=== PATIENT | female | born 1990 | race Caucasian/White ===

== ENCOUNTER 2017-05-28 18:07 | Emergency (ER) | payer OTHER ==
--- NOTE | 2017-05-29 01:20 | OBHP ---
Datetime: 05/28/2017 19:15 IP Adm Impression: Term, intrauterine IP Admit Plan: Admit to unit Admit Comment, IP Provider: 26 yo g1 edc 06/06 by 2nd trim us presents w/ c/o irregctxs and pelvic pr essure. She denies vag bleeding, srom or decreased fm. pmhx_ pshx: denies nkda medic: pnv; feso4 shx: denies etoh, illicit drug/tobacco use i: 38.5wks Con Robertson p: pt d/w dr cedeño d/c home Pelvic Type - PN: Adequate Extremities - PN: Normal Abdomen - PN: Normal Lungs - PN: Normal Heart - PN: Normal Neurologic - PN: Normal HEENT - PN: Normal General - PN: Normal Presentation-Admit: Vertex FHR - Baseline A Provider: 130 Membranes, Provider: Intact Contraction Comments Provider: irreg EGA AdmitDate IP: 38.5 Vital Signs Provider: Within Normal Limits IP Chief Complaint: Uterine contractions NICHD Variability Prov Fetus A: Moderate 6-25bpm NICHD Accel Fetus A IP Provider: 15X15 FHR Category Provider Fetus A: Category I NICHD Decel Fetus A IP Provider: None Dilatation, Provider: 0 Effacement, Provider: 20 Station, Provider: -3 Genitourinary Exam: Normal
== END 2017-05-28 19:31 | disposition home or self-care (01) ==
LOC: C.EROB 18:07 → C.4D 19:15 → UNDOADMIN 19:15 → C.EROB 19:31
DX: O47.1 False labor at or after 37 completed weeks of gestation (principal); Z3A.38 38 weeks gestation of pregnancy

== ENCOUNTER 2017-05-31 19:25 | Inpatient (IN) | payer OTHER ==
[2017-05-31 20:17] VITALS: BMI 37.8
[2017-05-31] MEDS ORDERED: Penicillin G 5 Million Unit Vial IVPB ONE (20:17)
[2017-05-31] MEDS: Lactated Ringer's 1,000 ML IV SCH (20:30)
[2017-05-31 20:53] LABS: BASO % 0.3 % (0.0-2.0); EOS # 0.1 K/uL (0.0-0.7); EOS % 0.8 % (0.0-4.0); LYMPH # 2.3 K/uL (1.0-4.3); MEAN CELL VOLUME 84.7 fL (81.0-99.0); MEAN CORPUSCULAR HEMOGLOBIN 28.9 pg (27.0-31.0); MEAN CORPUSCULAR HGB CONC 34.1 g/dL (33.0-37.0); MEAN PLATELET VOLUME 8.7 fL (7.2-11.7); MONO # 0.9 K/uL (0.0-0.8); MONO % 7.8 % (0.0-10.0); NEUT # 8.7 K/uL (1.8-7.0); NEUT % 72.1 % (50.0-75.0); RBC 4.15 Mil/uL (3.80-5.20); RED CELL DISTRIBUTION WIDTH 15.5 % (11.5-14.5); WHITE BLOOD COUNT 12.1 K/uL (4.8-10.8)
[2017-05-31 21:06] LABS: ALBUMIN 3.8 g/dL (3.5-5.0); ALT/SGPT 26 U/L (9-52); AST/SGOT 25 U/L (14-36); BLOOD UREA NITROGEN 8 mg/dL (7-17); CALCIUM 8.8 mg/dl (8.6-10.4); GFR AFRICAN-AMERICAN > 60; GFR NON-AFRICAN AMERICAN > 60
[2017-05-31 21:37] LABS: SQUAMOUS EPITHIAL < 1 /hpf (0-5); URINE BILIRUBIN NEGATIVE (NEGATIVE); URINE BLOOD NEGATIVE (NEGATIVE); URINE CLARITY Clear (Clear); URINE COLOR Colorless (YELLOW); URINE GLUCOSE (UA) NORMAL (Normal); URINE LEUKOCYTE ESTERASE NEG Leu/uL (Negative); URINE NITRATE NEGATIVE (NEGATIVE); URINE PROTEIN NEGATIVE (NEGATIVE); URINE UROBILINOGEN NORMAL mg/dL (0.2-1.0)
--- NOTE | 2017-05-31 21:49 | OBADHP ---
Datetime: 05/31/2017 21:31 IP Adm Impression Other: Prolonged latent phase of labor; GBS positive IP Admit Plan Other: Cervical ripening Admit Comment, IP Provider: This is a private patient of Dr. Ludivina Rogers Patient initially interviewed at approximately 2035 hours 26 y.o. , LMP 08/23/16, AIRAM 06/06/17, EGA 39w 1d by sono 12/12/16 at 14w 5d, c/o occasional contr actions, onset 05/29/17, stronger last night, pain scale 3/10. (+) AFM; denies LOF, VB. Passed mucous plug 0900 05/30/17. Last had sexual intercourse 05/28/17. care: Dr. Duran; noted for mild an emia. 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 Denies h/o STI or abnormal Pap PMH: h/o asthma, approx age 10- was hospitalized. No attacks since. PSH: denies NKDA Meds: PNV, Fe - each QD Soc Hx: denies tobacco, illicit drug or EtOH use. x 1 1/2 years; together x 4 years. Fam Hx: Mother alive 53 y.o. no med issues. Father alive 54 - HTN. 1 Maternal uncle - liver CA P.E.: as above. Mildy lobes, in NAD. Awake, alert, oriented to time, person and place. Pleasant a nd cooperative. present and supportive Assessment: 26 y.o. P0, 39w 1d, prolonged latent phase of labor. Category 1 tracing. GBS (+). Case D/W Dr. Duran: patient for admission - cervical ripening. This was explained to patient, along with the possiblility of pitocin. Pain relief measures were also discussed. Patient and expresse d an understanding and agree; no questoins offered. Patient is clinically stable. Plan: 1) Admit 2) NPO 3) IVFs 4) Admission labs 5) Continuous EFM 6) Cervidil 7) Penicillin (when in active labor) 8) Pain relief, upon request 9) Anticipate vaginal delivery -as per, and discussed with, Dr. Duran Cervidil inserted in posterior vaginal vault at 2103 hours Pelvic Type - PN: Adequate Extremities - PN: Normal Abdomen - PN: Normal Back - PN: Normal Breast - PN: Not Done Lungs - PN: Normal Heart - PN: Normal Thyroid - PN: Not Done Neurologic - PN: Normal HEENT - PN: Normal General - PN: Normal Weight - Estimated: 3632 Presentation-Admit: Vertex FHR - Baseline A Provider: 135 Contraction Comments Provider: irregular Comments, ACOG Physical Exam: Abdomen: Gravid. Soft; non tender. Fundal height 40 cm All other systems reviewed and are negative Gestation - Est Wks by US: 39w 1d Vital Signs Provider: Reviewed; Within Normal Limits IP Chief Complaint: Uterine contractions NICHD Variability Prov Fetus A: Moderate 6-25bpm NICHD Accel Fetus A IP Provider: 15X15 FHR Category Provider Fetus A: Category I NICHD Decel Fetus A IP Provider: None Dilatation, Provider: 2 Effacement, Provider: 40 Station, Provider: -3 Genitourinary Exam: Normal DTRs - PN: Not Done EGA AdmitDate IP: 39.1 IP Adm Impression: Term, intrauterine IP Admit Plan: Admit to unit Datetime: 05/28/2017 19:15 Membranes, Provider: Intact
--- NOTE | 2017-05-31 22:23 | OBHP ---
Datetime: 05/31/2017 21:31 Admit Comment, IP Provider: This is a private patient of Dr. Ludivina Rogers Patient initially interviewed at approximately 2035 hours 26 y.o. , LMP 08/23/16, AIRAM 06/06/17, EGA 39w 1d by sono 12/12/16 at 14w 5d, c/o occasional contr actions, onset 05/29/17, stronger last night, pain scale 3/10. (+) AFM; denies LOF, VB. Passed mucous plug 0900 05/30/17. Last had sexual intercourse 05/28/17. care: Dr. Durna; noted for mild an emia. 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 Denies h/o STI or abnormal Pap PMH: h/o asthma, approx age 10- was hospitalized. No attacks since. PSH: denies NKDA Meds: PNV, Fe - each QD Soc Hx: denies tobacco, illicit drug or EtOH use. x 1 1/2 years; together x 4 years. Fam Hx: Mother alive 53 y.o. no med issues. Father alive 54 - HTN. 1 Maternal uncle - liver CA P.E.: as above. Mildy obese, in NAD. Awake, alert, oriented to time, person and place. Pleasant a nd cooperative. present and supportive Assessment: 26 y.o. P0, 39w 1d, prolonged latent phase of labor. Category 1 tracing. GBS (+). Case D/W Dr. Duran: patient for admission - cervical ripening. This was explained to patient, along with the possiblility of pitocin. Pain relief measures were also discussed. Patient and expresse d an understanding and agree; all questoins were answered. Patient is clinically stable. Plan: 1) Admit 2) NPO 3) IVFs 4) Admission labs 5) Continuous EFM 6) Cervidil 7) Penicillin (when in active labor) 8) Pain relief, upon request 9) Anticipate vaginal delivery -as per, and discussed with, Dr. Duran Cervidil inserted in posterior vaginal vault at 2103 hours IP Hx Assessment: The History has been Reviewed and is Current EGA AdmitDate IP: 39.1 Vital Signs Provider: Reviewed; Within Normal Limits IP Indication for Induction: Not Applicable
[2017-06-01] MEDS ORDERED: Nalbuphine 20 mg/ml Inj (1 ml) IVP PRN (00:15)
[2017-06-01] MEDS: Penicillin G Potassium 2.5 MU in Dextrose 5% In Water 50 ML IV SCH ×4 (09:03→22:06)
[2017-06-01] MEDS ORDERED: Oxytocin 30 UNIT 30 UNITS/500 ML BAG IV SCH (11:00)
[2017-06-01] MEDS ORDERED: Oxytocin 30 UNIT 30 UNITS/500 ML BAG IV ONE (11:15)
[2017-06-01] MEDS ORDERED: Nalbuphine 20 mg/ml Inj (1 ml) ONE (11:15)
[2017-06-01] MEDS: Lactated Ringer's 1,000 ML IV SCH ×2 (11:24→16:14)
[2017-06-01] MEDS ORDERED: Bupivacaine HCl 0.25% PF (10 ml) Inj ONE (14:58)
[2017-06-01] MEDS ORDERED: Bupivacaine 0.125%/FentaNYL 200 ML EPI ONE (14:59)
--- NOTE | 2017-06-01 16:39 | OBPN ---
Datetime: 06/01/2017 16:34 IP Progress Impression: Normal progression of labor IP Informed Consent Obtain: Vaginal Delivery IP Procedures: Artificial ROM IP Progress Plan: Continue present management Membranes, Provider: Ruptured Amniotic Fluid Color, Provider: Clear Contraction Comments Provider: q 2-3 min FHR - Baseline A Provider: 150 Gestation - Est Wks by US: 39.2 Presentation-Admit: Vertex IP Progress Note Comment: delayed entry: pt seen adn examined s/p cervidl , s/p epiudral for pregore ssion of labor pt denies any vb, +FM VSS VE: /-2 AROM celar A/P @ 39.2 wks GA in labor -cont current managment Vital Signs Provider: Reviewed; Within Normal Limits FHR Category Provider Fetus A: Category I NICHD Variability Prov Fetus A: Moderate 6-25bpm Dilatation, Provider: 5 Effacement, Provider: 60 Station, Provider: -2 Datetime: 05/31/2017 21:31 Weight - Estimated: 3632 NICHD Accel Fetus A IP Provider: 15X15 NICHD Decel Fetus A IP Provider: None
--- NOTE | 2017-06-01 18:31 | OBPN ---
Datetime: 06/01/2017 18:23 IP Progress Impression: Normal progression of labor IP Progress Plan: Continue present management Membranes, Provider: Ruptured Amniotic Fluid Color, Provider: Clear FHR - Baseline A Provider: 150 Gestation - Est Wks by US: 39.2 Presentation-Admit: Vertex IP Progress Note Comment: pt seen and examined reports puressure. s/p epdiural VSS EMF: Cat I TOCO: q 2-3 min Pitocon 12 mu/min A/P @ 39.2 wks GA in active labor, gbs psotion -cont pcn propylaixs -cont pitocon as per protolgol -cont current managment Vital Signs Provider: Reviewed; Within Normal Limits FHR Category Provider Fetus A: Category I NICHD Variability Prov Fetus A: Moderate 6-25bpm Dilatation, Provider: 6 Effacement, Provider: 70 Station, Provider: -2
[2017-06-02] MEDS: Lactated Ringer's 1,000 ML IV SCH (02:34)
[2017-06-02] MEDS ORDERED: Lidocaine 2% Inj (20ml) ONE (07:04)
[2017-06-02] MEDS ORDERED: Oxycodone/Acetaminophen 5/325 mg Tab PO PRN ×2 (07:26)
--- NOTE | 2017-06-02 07:37 | OBDS ---
DELIVERY PERSONNEL Delivery Doctor: Goyo Duran MD Scrub Nurse: Amairani Palomo Flatwork Catcher: Sheila Winston RN Anesthesiologist: Dr Goyo Jennings MATERNAL INFORMATION Delivery Anesthesia: Local; Epidural Placenta Cultured: No Maternal Complications: None Provider Comments: pt was fully dilated and pushing. verbal consent given for right mediolateral epi sitomy. atruamtic, spontaneous delivery of head in kimberly postion, no nuchal cord noted. atruatmic, spoe ntnoau deliver yof anteiro followed by posteiro shoulder followed by delivery of antonio body. both oral and nasal passages of the baby were bulb suctioned. umbilical cord wsa clamped and cut. baby was hadn ed ot mother on abodmen with rn assistance. cord blood collected x 2. spontnaoue delivery of intact placenta with membranes. fundus fimr. right mediolateral episotmy repaired iwth 2-0 and 3-0 chormic. good emostias live female infant apgars 9,9 ebl 300 ml weigh tof 7lbs 12 ounces LABOR SUMMARY EDC: 06/06/2017 00:00 No. Babies in Womb: 1 Attempted: No Labor Anesthesia: Epidural LABOR INFORMATION Reason for Induction: Not Applicable Onset of Labor: 06/01/2017 18:20 Complete Dilatation: 06/02/2017 03:45 Cervical Ripening Agents: Cervidil (Annotations: cervidil removed) Oxytocin: Induction Group B Beta Strep: Positive Antibiotics # of Doses: 7 Antibiotics Time of Last Dose: 06/02 @0630 Steroids Given: None Reason Steroids Not Administered: Not Applicable MEMBRANES Membranes Rupture Method: Artificial Rupture of Membranes: 06/01/2017 16:30 Length of Rupture (hrs): 14.48 Amniotic Fluid Color: Clear Amniotic Fluid Amount: Moderate Amniotic Fluid Odor: None STAGES OF LABOR Stage 1 hrs: 9 Stage 1 min: 25 Stage 2 hrs: 3 Stage 2 min: 14 Stage 3 hrs: 0 Stage 3 min: 14 Total Time in Labor hrs: 12 Total Time in Labor min: 53 VAGINAL DELIVERY Episiotomy: Right Mediolateral Laceration Extension: N/A Laceration Type: None Laceration Repair: Not Applicable Laceration Repair Note: right mediolateral episostiomy Initial Vag Sponge Count: 20 Final Vag Sponge Count: 20 Initial Vag Sharps Count: 3 Final Vag Sharps Count: 3 Sponge Count Correct: Yes Sharps Count Correct: Yes BABY A INFORMATION Infant Delivery Date/Time: 06/02/2017 06:59 Method of Delivery: Vaginal Born in Route : No : N/A Forceps: N/A Vacuum Extraction: N/A Shoulder Dystocia : No SHOULDER DYSTOCIA BABY A Delivery Date/Time: 06/02/2017 06:59 PRESENTATION/POSITION BABY A Presentation: Cephalic Breech Presentation: N/A PLACENTA INFORMATION BABY A Placenta Delivery Time : 06/02/2017 07:13 Placenta Method of Delivery: Spontaneous Placenta Status: Delivered SCORES BABY A Heart Rate 1 min: >100 bpm Resp Effort 1 min: Good Cry Reflex Irritability 1 min: Cough or Sneeze or Pulls Away Muscle Tone 1 min: Some Flexion of Extremities Color 1 min: Body [place], Extremities Blue Resuscitation Effort 1 min: Tactile Stimulation SCORE 1 MIN: 8 Heart Rate 5 min: >100 bpm Resp Effort 5 min: Good Cry Reflex Irritability 5 min: Cough or Sneeze or Pulls Away Muscle Tone 5 min: Active Motion Color 5 min: Body [place], Extremities Blue Resuscitation Effort 5 min: Oxygen SCORE 5 MIN: 9 INFANT INFORMATION BABY A Gestational Age at Delivery: 39.3 Gestational Status: Term Outcome : Liveborn Condition : Stable Sex: Female IDENTIFICATION/MEDS BABY A ID Band Number: [id number] ID Band Location: Left Leg; Left Arm Sensor Applied: Yes Sensor Number: [id number] Sensor Location : Cord Clamp WEIGHT/LENGTH BABY A Infant Birthweight (gms): 3525 Infant Weight (lb): 7 Infant Weight (oz): 12 Length Inches: 20.50 Length cms: 52.1 CORD INFORMATION BABY A No. Cord Vessels: 3 Nuchal Cord : N/A Cord Blood Taken: Yes Infant Suction: Mouth; Nose
[2017-06-02] MEDS: Benzocaine/Menthol 20%-0.5% Topical Spray (60 ml) TOP SCH ×2 (10:04→13:41)
[2017-06-03] MEDS: Benzocaine/Menthol 20%-0.5% Topical Spray (60 ml) TOP SCH (09:40)
[2017-06-03 11:24] LABS: BASO # 0.1 K/uL (0.0-0.2); BASO % 0.5 % (0.0-2.0); EOS # 0.1 K/uL (0.0-0.7); EOS % 0.4 % (0.0-4.0); HEMOGLOBIN 9.4 g/dL (11.0-16.0); LYMPH # 2.7 K/uL (1.0-4.3); LYMPH % 13.3 % (20.0-40.0); MEAN CELL VOLUME 86.2 fL (81.0-99.0); MEAN CORPUSCULAR HEMOGLOBIN 29.2 pg (27.0-31.0); MEAN CORPUSCULAR HGB CONC 33.9 g/dL (33.0-37.0); MEAN PLATELET VOLUME 8.8 fL (7.2-11.7); MONO # 1.3 K/uL (0.0-0.8); MONO % 6.2 % (0.0-10.0); NEUT # 16.2 K/uL (1.8-7.0); NEUT % 79.6 % (50.0-75.0); RBC 3.21 Mil/uL (3.80-5.20); RED CELL DISTRIBUTION WIDTH 15.9 % (11.5-14.5); WHITE BLOOD COUNT 20.3 K/uL (4.8-10.8)
--- NOTE | 2017-06-04 06:03 | OBPPN ---
Datetime: 06/04/2017 06:03 PP Pain Prov: Within normal limits PP Nausea Prov: Denies PP Flatus Prov: Yes PP BM Prov: No PP Breasts Prov: Normal PP Heart Prov: Normal PP Lungs Prov: Normal PP Abdomen/Uterus Prov: Normal PP Lochia Prov: Normal PP Vulva/Perineum Prov: Normal PP CVA Tenderness Prov: Normal PP Extremities Prov: Normal Vital Signs Provider PP: Reviewed; Within Normal Limits Datetime: 06/03/2017 09:00 PP Comments Phys Exam Prov: Abdomen: Soft, non-tender, +BSx4, fundus is firm and at the umbillicus PP Impression Prov: Normal progression PP Plan Prov: Continue present management PP Progress Note Prov: Patient was seen and examined at bedside. Patient reports that she is doing w ell and pain is very well-controlled. Patient reports that she is passing flatus, had a bowel movemen t, urinating without difficulty and mild lochia. Patient is tolerating diet and ambulating without di fficulty. Patient is breast feeding. Patient denies fever, chills, nausea, vomiting, chest pain, palp itation, calf tenderness, SOB. Labs: 12.1>12.0/35.2<243, f/u am labs B+, Rubella Non-immune VS: BP: 126/84, HR: 97, Temp: 98.4 Physical Examination : Gen: Well-appearing, NAD Cardio: RRR, Normal S1, S2 Pulm: CTA bilaterally Abd: Soft, + bowel sounds in all 4 quadrants, fundus is firm and at the umbilicus VE: moderate lochia, non fuls mselling, rml healign well, non tender Ext: No edema, no clubbing and no cyanosis, no calf tenderness A/P: 26 year old S/P PPD#1 1. Stable, Afebrile 2. Pain control: Motrin and percocet 3. Encourage hydration and ambulation 4. Encourage breast feeding 5. Continue present managemement 6. Anticipate discharge tomorrow 7. Plans discussed with attending Sushant Licona DO, PGY-1 pt seen adn examined, agree with above cont alee tmngant wbs 20, f/u am cbc
--- NOTE | 2017-06-04 06:16 | OBPPN ---
Datetime: 06/04/2017 06:03 PP C/S Incision Prov: Not Applicable PP Progress Prov: Normal PP Comments Phys Exam Prov: ABD: soft, nt, nd, +BS, no guarding no reboudn tendneres, no rigidty VE: rml ttp, moderate lochia, non foul smelling EXT: no calf tendneres, negaitve homans' sign PP Impression Prov: Normal progression PP Progress Note Prov: pt seen and examined adn reports pain over episitomy site increasign intensit y and freuqency, denies any fever, chlils, nausea, vomiting, cps, sob. pt ambuaitng, voding, passign flatus, breast feeding VSS PE See above A/P s/p PPD #2 -pain manamgnet: percocet/ x 2 -f/u am cbc -reevlate -posssible dxc if pain controoled with po meds
[2017-06-04 08:59] LABS: BASO # 0.1 K/uL (0.0-0.2); BASO % 0.5 % (0.0-2.0); EOS # 0.2 K/uL (0.0-0.7); EOS % 1.3 % (0.0-4.0); HEMOGLOBIN 9.9 g/dL (11.0-16.0); LYMPH # 2.5 K/uL (1.0-4.3); LYMPH % 17.8 % (20.0-40.0); MEAN CELL VOLUME 86.5 fL (81.0-99.0); MEAN CORPUSCULAR HEMOGLOBIN 28.7 pg (27.0-31.0); MEAN CORPUSCULAR HGB CONC 33.2 g/dL (33.0-37.0); MEAN PLATELET VOLUME 8.8 fL (7.2-11.7); MONO # 0.6 K/uL (0.0-0.8); MONO % 4.2 % (0.0-10.0); NEUT # 10.5 K/uL (1.8-7.0); NEUT % 76.2 % (50.0-75.0); RBC 3.44 Mil/uL (3.80-5.20); RED CELL DISTRIBUTION WIDTH 15.7 % (11.5-14.5); WHITE BLOOD COUNT 13.8 K/uL (4.8-10.8)
[2017-06-04] MEDS ORDERED: Influenza Vaccine 60 mcg/0.5 mL SYR (4YR UP) IM ONE (10:45)
[2017-06-04 18:10] VITALS: BP 119/81
[2017-06-05 00:55] VITALS: PULSE 80; RESP 18; TEMP 98.4; O2SAT 98
== END 2017-06-04 20:20 | disposition home or self-care (01) | DRG 775 ==
LOC: C.EROB 19:25 → C.4D 19:43 → C.4M 06-02 09:30
PROVIDERS: ADMIT Obstetrics & Gynecology; ATTEND Obstetrics & Gynecology
PROC: 10E0XZZ Delivery of Products of Conception, External Approach (ICD-10-PCS; principal; 2017-06-02)
PROC: 10907ZC Drainage of Amniotic Fluid, Therapeutic from Products of Conception, Via Natural or Artificial Opening (ICD-10-PCS; 2017-06-02)
PROC: 3E0P7VZ Introduction of Hormone into Female Reproductive, Via Natural or Artificial Opening (ICD-10-PCS; 2017-06-02)
PROC: 0W8NXZZ Division of Female Perineum, External Approach (ICD-10-PCS; 2017-06-02)
DX: O63.0 Prolonged first stage (of labor) (principal); O99.02 Anemia complicating childbirth; O99.824 Streptococcus B carrier state complicating childbirth; Z37.0 Single live birth; Z3A.39 39 weeks gestation of pregnancy